=== PATIENT | male | born 1950 | race Caucasian/White ===

== ENCOUNTER → 2018-10-01 | Outpatient (CLI) | payer MEDICARE, OTHER, SELFPAY ==
--- NOTE | 2018-10-01 09:37 | RAD_ITS ---
STUDY: X-RAY - ABDOMEN/PELVIS REASON FOR EXAM: Male, 67 years old. Renal stone assessment TECHNIQUE: Single view COMPARISON: None. FINDINGS: Normal visualized lung bases. At least 2 foci of probable renal calculi in the right kidney, and the larger focus measures 7.4 mm. At least 2 foci of probable renal calculi on the left side in the left kidney, with the larger focus measures 8.1 mm. There is an unremarkable bowel gas pattern. There is no demonstrated free abdominal air. The visualized liver, spleen and kidneys are grossly normal in size and morphology. There are calcified phleboliths in the pelvis. There are diffuse degenerative changes of the visualized lumbar spine. RAD/Abdomen Single View IMPRESSION: Bilateral scattered renal calculi, measuring up to 7.4 mm on the right and 8.1 mm on the left. Electronically Signed: Keith Tierney MD at 15:35 EDT Tel [phone], Service support ,
[2018-10-01 10:58] LABS: Anion Gap 7 (5-15); BUN 21 mg/dL (7-18); BUN/Creat Ratio 19.8 RATIO (10-20); Calcium,Total 9.4 mg/dL (8.5-10.1); Chloride 108 mmol/L (98-107); Creatinine, Serum 1.06 mg/dL (0.70-1.30); EST Glomerular Filtration Rate 74 mL/min (>60); Est Glom Filt Rate - Afr Amer 89 mL/min (>60); Glucose 91 mg/dL (74-106); Phosphorus 2.8 mg/dL (2.5-4.9); Potassium 3.9 mmol/L (3.5-5.1); Sodium Level 139 mmol/L (136-145)
== END | disposition home or self-care (01) ==
LOC: LAB 09:23
PROVIDERS: Family Provider Family Medicine; PCP Family Medicine; Referring Provider Urology; Visit Provider Urology
DX: N40.0 Benign prostatic hyperplasia without lower urinary tract symptoms (principal)
CPT/HCPCS: 36415; 74018; 80048; 83735; 83970; 84100

== ENCOUNTER → 2018-11-05 | Outpatient (CLI) | payer MEDICARE, OTHER, SELFPAY ==
[2018-11-05 08:18] LABS: Anion Gap 5 (5-15); BUN 18 mg/dL (7-18); BUN/Creat Ratio 17.6 RATIO (10-20); Calcium,Total 9.2 mg/dL (8.5-10.1); Chloride 107 mmol/L (98-107); Creatinine, Serum 1.02 mg/dL (0.70-1.30); EST Glomerular Filtration Rate 77 mL/min (>60); Est Glom Filt Rate - Afr Amer 93 mL/min (>60); Glucose 97 mg/dL (74-106); Phosphorus 2.6 mg/dL (2.5-4.9); Sodium Level 140 mmol/L (136-145); Thyroid Stim Hormone (TSH) 3.43 uIU/mL (0.358-3.74)
[2018-11-05 08:29] LABS: PTHIN 65.3 pg/mL (18.4-80.1)
== END | disposition home or self-care (01) ==
LOC: LAB.FUTURE 05:58 → LAB 06:01
PROVIDERS: Family Provider Family Medicine; PCP Family Medicine; Referring Provider Urology; Visit Provider Urology
DX: R82.994 Hypercalciuria (principal); Z79.899 Other long term (current) drug therapy
CPT/HCPCS: 36415; 80048; 83735; 83970; 84100; 84443

== ENCOUNTER → 2018-12-05 | Outpatient (CLI) | payer MEDICARE, OTHER, SELFPAY ==
--- NOTE | 2018-12-05 12:47 | RAD_ITS ---
STUDY: X-RAY - ABDOMEN/PELVIS REASON FOR EXAM: Male, 68 years old. Kidney stones. TECHNIQUE: Single AP view of the abdomen / pelvis. COMPARISON: 10/01/2018. FINDINGS: Normal visualized lung bases. At least 2 foci of probable renal calculi in the right kidney, and the larger focus measures 7.4 mm, stable. At least 2 foci of probable renal calculi on the left side in the left kidney, with the larger focus measures 8.1 mm, stable. There is an unremarkable bowel gas pattern. There is no demonstrated free abdominal air. The visualized liver, spleen and kidneys are grossly normal in size and morphology. Normal soft tissue structures. Normal visualized osseous structures. RAD/Abdomen Single View IMPRESSION: Stable bilateral renal stones since September. Electronically Signed: Tristan Javed MD at 20:39 EDT , Service support ,
== END | disposition home or self-care (01) ==
LOC: RAD 12:45
PROVIDERS: Family Provider Family Medicine; PCP Family Medicine; Referring Provider Urology; Visit Provider Urology
DX: N20.0 Calculus of kidney (principal)
CPT/HCPCS: 74018

== ENCOUNTER 2018-12-20 11:38 | Day surgery (SDC) | payer MEDICARE, OTHER, SELFPAY ==
--- NOTE | 2018-12-20 12:04 | RAD_ITS ---
STUDY: X-RAY - ABDOMEN/PELVIS REASON FOR EXAM: Male, 68 years old. History of kidney stones. For ESWL. TECHNIQUE: KUB. COMPARISON: None. FINDINGS: Left upper pole renal calcification measures 3 mm. Left lower pole renal calcification measures 7 mm. 5 mm lower pole right renal calcification. Soft tissue density projected over the lower pole the right kidney, possible renal cyst. Mild degenerative changes of the thoracic spine. Soft tissues and bony structures are otherwise unremarkable. RAD/Abdomen Single View IMPRESSION: 1. Bilateral renal calculi. 2. Soft tissue density in the right lower quadrant, possible right renal mass or cyst. Consider ultrasound for further evaluation. Electronically Signed: Jessica Ibarra MD at 19:50 EST Tel , Service support ,
[2018-12-20 12:46] VITALS: BP 119/78; PULSE 74; RESP 14; TEMP 36.3; O2SAT 96; BMI 33.5
[2018-12-20] MEDS: Lactated Ringers 1,000 ML 100 ML IV (13:06)
[2018-12-20] MEDS: Cefazolin 2 GM in 0.9% Normal Saline 100 ML IV (14:53)
--- NOTE | 2018-12-20 15:50 | DCINST_ITS ---
- Discharge Diagnoses Current Active Problems: right kidney stone Reason(s) for Visit for Discharge Instructions: right eswl You will use the following diet at home:: Regular Your food should be the consistency of: Regular Discharge Activity: No Restrictions Allergies/Adverse Reactions: Allergies No Known Allergies Allergy (Verified 12/13/18 14:57) Medications to take at Discharge Allopurinol [Zyloprim] 100 mg PO DAILYCM 12/13/18 Amlodipine [Norvasc] 5 mg PO DAILY 12/13/18 Aspirin [Aspir 81] 81 mg PO DAILY 12/13/18 Losartan Potassium [Cozaar] 100 mg PO DAILY 12/13/18 Rosuvastatin Calcium [Crestor] 5 mg PO QHS 12/13/18 Hydrocodone/Acetaminophen [[place] 5-325 Tablet] 1 ea PO Q4H PRN PRN 5 Days #14 tab 12/20/18 The following prescriptions were given: Hydrocodone/Acetaminophen [[place] 5-325 Tablet] 1 ea PO Q4H PRN PRN 5 Days #14 tab PRN Reason: Pain Score 1-10/10 Prescription Printed Primary Care Physician: Altagracia Tracey MD [Primary Care Provider] - Test Results: Test results from this visit will be discussed in further detail at your follow- up appointment, if applicable. Please Follow Up With: Emile Juárez MD When: 2 weeks with xray
--- NOTE | 2018-12-20 15:53 | OP.PCM_ITS ---
Report of Operation Date of Procedure: 12/20/18 Pre-Operative Diagnosis: Right renal calculi Post-Operative Diagnosis: The same Surgery/Procedure Performed:: Cystoscopy right retrograde pyelogram right ESWL Description of Surgical Findings:: 68-year-old male has been having intermittent flank pain in the right side on KUB he is got to fragments that appear to be stones one in the lower pole one in the midpole of the right kidney we have elected to proceed with treatment of the stones to see if the pain will resolve. He understands it is possible the stones may not break with shockwave lithotripsy. Possible he may need more than one procedure. Patient was taken back to the operating room at the smooth induction of general anesthesia he was placed supine on the table we used fluoroscopy to identify the stones in the right kidney appeared to be a stone in the lower pole the right kidney and the one in the midpole we started first treating the stone and what appeared to be a lower pole the right kidney but it did not break remove at all so after a while we decided to perform a retrograde pyelogram we stopped the treatments patient was prepped and draped in usual sterile fashion went to the bladder with a 19 Tamazight rigid ureteroscope the entire length urethra is normal the prostate was normal inside the bladder cannulated the right ureter orifice to perform a retrograde pyelogram and a retrograde pyelogram looks at the lower stone was more of a calcification in the kidney and outside the collecting system but there was a stone in the midpole in the kidney in the midpole upper part of the kidney so we then reposition the lithotripter on the stone and contributing to treatment the stone broke up really well and appeared to be successful fragmentation looks like the lower pole calculi is either and within a pocket or within the diverticular pocket and may be outside the collecting system therefore was not treated. We will see him back in a few weeks with an x-ray and will discuss with the want to treat the stones on the left kidney. Type of Anesthesia:: General - Admit VTE Documentation VTE Present on Admission: No VTE Mechan Device Prophylaxis: SCD's
[2018-12-20 15:59] VITALS: BP 118/80; BP 119/78; PULSE 80; RESP 16; TEMP 36.4; O2SAT 93
[2018-12-20 16:15] VITALS: BP 112/75; BP 119/78; PULSE 70; RESP 16; O2SAT 95
[2018-12-20 16:30] VITALS: BP 118/75; BP 119/78; PULSE 70; RESP 16; TEMP 36; O2SAT 95
[2018-12-20 17:14] VITALS: BP 118/86; BP 119/78; PULSE 64; RESP 16; TEMP 36.1; O2SAT 95
== END 2018-12-20 17:16 | disposition home or self-care (01) ==
LOC: SDC 11:49 → AC 11:53
PROVIDERS: Family Provider Family Medicine; PCP Family Medicine; Referring Provider Urology; Visit Provider Urology
PROC: (CPT 50590; principal; 2018-12-20 13:35)
DX: N20.0 Calculus of kidney (principal); I10 Essential (primary) hypertension; E78.00 Pure hypercholesterolemia, unspecified; B19.10 Unspecified viral hepatitis B without hepatic coma; Z87.442 Personal history of urinary calculi; Z79.82 Long term (current) use of aspirin; Z79.899 Other long term (current) drug therapy
CPT/HCPCS: 50590; 52005; 74018; J7120; J2405

== ENCOUNTER → 2018-12-30 | Outpatient (CLI) | payer MEDICARE, OTHER, SELFPAY ==
[2018-12-20 12:46] VITALS: BMI 33.5
--- NOTE | 2018-12-30 16:02 | RAD_ITS ---
STUDY: X-RAY - ABDOMEN/PELVIS REASON FOR EXAM: Male, 68 years old. Follow-up right-sided kidney stone TECHNIQUE: Two AP supine views of the abdomen and pelvis. COMPARISON: Previous study of 12/20/2018 FINDINGS: Normal visualized lung bases. There is an unremarkable bowel gas pattern. There is no demonstrated free abdominal air. There is an 8 mm calcification projecting over the lower pole of the left kidney. There is a 6 mm calcification projecting over the midpole of the right kidney. Normal soft tissue structures. Normal visualized osseous structures. RAD/Abdomen Single View IMPRESSION: Calcifications projecting over the left and right kidneys, stable in the interval. A 3 mm calcification projecting over the upper pole of the left kidney on the previous study is not identified, possibly being obscured by overlying bowel. Electronically Signed: Aris Banda MD at 19:54 EST , Service support ,
== END | disposition home or self-care (01) ==
LOC: RAD 15:56
PROVIDERS: Family Provider Family Medicine; PCP Family Medicine; Referring Provider Urology; Visit Provider Urology
DX: N20.0 Calculus of kidney (principal)
CPT/HCPCS: 74018

== ENCOUNTER → 2020-01-12 08:14 | Outpatient (CLI) | payer MEDICARE, OTHER, SELFPAY ==
--- NOTE | 2020-01-12 08:22 | RAD_ITS ---
STUDY: X-RAY - ABDOMEN/PELVIS REASON FOR EXAM: Male, 69 years old. History of kidney stones. Yearly checkup. No current pain. TECHNIQUE: Two AP supine views of the abdomen and pelvis. COMPARISON: 2018. FINDINGS: Normal visualized lung bases. There is an unremarkable bowel gas pattern. There is no demonstrated free abdominal air. The visualized liver, spleen and kidneys are grossly normal in size and morphology. There is a stable calcification overlying the left mid kidney. There is a stable calcification overlying the lower pole of the left kidney. No new calcifications are seen. There are no ureteral calcifications. Stable phleboliths are seen in the right pelvis. There are no osseous changes. RAD/Abdomen Single View IMPRESSION: Stable bilateral renal calculi. Electronically Signed: Byod Art DO at 23:24 EST Tel [phone], Service support ,
== END ==
PROVIDERS: PCP Family Medicine; Referring Provider Urology; Visit Provider Urology
DX: N20.0 Calculus of kidney (principal)
CPT/HCPCS: 74018

== ENCOUNTER → 2020-10-26 09:01 | Outpatient (CLI) | payer MEDICARE, OTHER, SELFPAY ==
--- NOTE | 2020-10-26 09:10 | RAD_ITS ---
STUDY: X-RAY - ABDOMEN/PELVIS REASON FOR EXAM: Male, 70 years old. Nephrolithiasis TECHNIQUE: Single AP view of the abdomen / pelvis. COMPARISON: None. FINDINGS: Normal visualized lung bases. Small bowel and colonic gas patterns are normal. No mucosal thickening.. No free intraperitoneal air. The visualized liver, spleen and kidneys are grossly normal in size and morphology. 7 mm calculus overlying the right lower renal pole. 3 mm calculus overlying the right upper renal pole. 6 mm calculus overlying the left. Multiple additional calcifications overlying the pelvis which likely represent phleboliths. Normal soft tissue structures. There are diffuse degenerative changes of the visualized lumbar spine. RAD/Abdomen Single View IMPRESSION: 1. Bilateral nephrolithiasis 2. Normal bowel gas pattern. Electronically Signed: Jeyson Deras MD at 3:50 EDT Tel , Service support ,
--- NOTE | 2020-10-26 12:23 | EKG12_ITS ---
Test Reason : PRE OP Blood Pressure : / mmHG Vent. Rate : 095 BPM Atrial Rate : 095 BPM P-R Int : 206 ms QRS Dur : 156 ms QT Int : 378 ms P-R-T Axes : 022 -49 024 degrees QTc Int : 475 ms Normal sinus rhythm Right bundle branch block Left anterior fascicular block Bifascicular block Abnormal ECG Confirmed by AGATA MELGOZA, LOWELL ([id number]), editorial clerk HERNANDO MAYS ([id number]) on 10/27/2020 10:42:33 AM Referred By: MICHAEL Confirmed By:LOWELL PARMAR MD
== END ==
PROVIDERS: PCP Family Medicine; Visit Provider Urology
DX: N20.0 Calculus of kidney (principal)
CPT/HCPCS: 74018; 93005

== ENCOUNTER → 2020-10-26 12:20 | Outpatient (CLI) | payer MEDICARE, OTHER, SELFPAY | PROVIDERS: PCP Family Medicine; Visit Provider Urology | DX: Z01.810 Encounter for preprocedural cardiovascular examination (principal); I10 Essential (primary) hypertension ==

== ENCOUNTER → 2020-10-29 16:19 | Outpatient (CLI) | payer MEDICARE, OTHER, SELFPAY | PROVIDERS: PCP Family Medicine; Referring Provider Urology; Visit Provider Urology | DX: N39.0 Urinary tract infection, site not specified (principal) | CPT/HCPCS: 87077; 87086; 87088; 87186 ==

== ENCOUNTER 2020-10-31 10:04 | Emergency (ER) | payer MEDICARE, OTHER, SELFPAY ==
[2020-10-31 10:05] VITALS: BP 151/106; PULSE 78; RESP 16; TEMP 36.2; O2SAT 94; BMI 34.5
--- NOTE | 2020-10-31 10:42 | RAD_ITS ---
STUDY: X-RAY CHEST REASON FOR EXAM: Male, 70 years old. Cough. TECHNIQUE: Single AP portable view of the chest. COMPARISON: None. FINDINGS: Atelectatic changes in both lung bases and left midlung zone. There is no demonstrated pleural abnormality. Normal size heart. Normal mediastinum and dilip. Normal visualized pulmonary arteries. There is atherosclerotic tortuosity of the aortic arch and descending thoracic aorta. No demonstrated acute osseous changes. There is no demonstrated abnormality of the visualized soft tissue structures of the upper abdomen. RAD/Chest 1 View (Portable) IMPRESSION: Linear subsegmental atelectatic changes. Electronically Signed: Greyson Szymanski MD at 11:53 EDT Tel , Service support ,
--- NOTE | 2020-10-31 10:47 | EX.ED.DYSGE1 ---
HPI History of Present Illness Chief Complaint: Complaint Informant: patient and spouse/S.O. Onset/Context/Timing Onset: Days Context: Gradual Onset Timing: Continuous Current Severity: Mild Maximum Severity: Mild Narrative Narrative: 70-year-old male history of hypertension, high cholesterol and gout. Recently diagnosed with an 8 mm kidney stone for which a stent was placed and a UTI for which she is on Cipro which was started on . Is really had no nausea or vomiting no diarrhea. No significant fever. He is also had a nonproductive cough which she got a negative Covid test done at a urgent care last Sunday. Just as he did not feel much better. His urologist sent him in for further evaluation because he has an upcoming procedure for the kidney stone. Prior similar symptoms: No Recent Illness/Hospitalization: No [facility] Medical History (Updated 10/31/20 @ 12:[address] Nathan Rincon MD) Gout HLD (hyperlipidemia) Hypertension Home Medications allopurinol 100 mg PO DAILYCM 12/13/18 [History Last Taken Unknown] amlodipine 5 mg PO DAILY 12/13/18 [History Last Taken 12/20/18 07:00 5 MG] aspirin 81 mg PO DAILY 12/13/18 [History Last Taken 12/12/18] losartan 100 mg PO DAILY 12/13/18 [History Last Taken 12/20/18 07:00 100 MG] rosuvastatin 5 mg PO QHS 12/13/18 [History Last Taken Unknown] Allergy/AdvReac Type Severity Reaction Status Date / Time No Known Allergies Allergy Verified 12/13/18 14:57 Social History Smoking Status: Never smoker ROS ROS ED ROS Narrative Cough. Cloudy urine. Body aches. Review of Systems ROS Unobtainable: Denies due to encephalopathy Constitutional Constitutional ED: Denies chills or fever(s) Eyes Eyes: Denies change in vision ENT ENT ED: Denies ear pain or sore throat Cardiovascular Cardiovascular: Denies chest pain Respiratory/Chest Respiratory/Chest: Reports cough; Denies dyspnea Gastrointestinal Gastrointestinal: Denies abdominal pain, diarrhea, nausea or vomiting Genitourinary Genitourinary ED: Reports dysuria Musculoskeletal Musculoskeletal: Reports arthralgias and myalgias Integumentary Denies abscess or rash Neurologic Neurologic: Denies headache(s) Psychiatric Psychiatric: Denies depression Endocrine Endocrinology: Denies polyuria Allergic/Immunologic Allergic/Immunologic ED: Denies urticaria EXAM Physical Exam Narrative Exam Narrative: Well-appearing 70-year-old male. Vital signs stable afebrile. Pulse ox 94% on room air no signs of hypoxia. Patient does not look septic nor dehydrated nor toxic. He is in no distress. at bedside. HEENT exam unremarkable. Neck nontender no lymphadenopathy. Lungs clear to auscultation bilaterally. Heart regular rhythm rate about 75 no murmur. Abdomen soft nondistended normal bowel sounds no peritoneal signs. Moving all 4 extremities. No edema. Back nontender no CVA tenderness. Neurologically is awake and alert with no focal motor deficits. Const Vital Signs: 10/31/20 10:05 Temperature 97.2 F L Temperature Source Temporal Pulse Rate 78 Respiratory Rate 16 Blood Pressure 151/106 H Blood Pressure Mean 121 Pulse Ox 94 Oxygen Delivery Method Room Air Positive well nourished and well developed; Negative for cachectic, contractures or unkempt General Appearance ED: well developed and NAD; Negative for unkempt, cachectic or contractures Nutritional Appearance: Negative for cachectic HEENT Reports moist mucous membranes Negative for trauma or tenderness Eyes PERRL and EOMs intact bilaterally Neck no lymphadenopathy, supple and no JVD General: Negative for tenderness Chest Wall inspection of chest normal and palpation of chest normal Resp normal respiratory effort and clear to auscultation bilaterally Effort and Inspection: Negative for pain with movement Auscultation: Negative for rales, rhonchi or wheezes Cardio regular rate, regular rhythm, S1 normal heart sound, S2 normal heart sound and no murmurs GI normal to inspection, nondistended, normoactive bowel sounds, non-distended and no masses; Negative for non-tender Inspection: Negative for abdominal distention Auscultation: normoactive bowel sounds; Negative for hyperactive bowel sounds or hypoactive bowel sounds Palpation: soft and tender; Negative for guarding or rebound tenderness present Back/Spine no CVA tenderness General Back: Negative for CVA tenderness Cervical Spine: Negative for cervical spine tenderness Thoracic Spine / Upper Back: Negative for thoracic spinal tenderness Extremity normal to inspection General Extremety ED: Negative for edema or tenderness General Extremity: Negative for edema Neuro oriented x3 and CN's II-XII intact bilaterally Sensorium / Orientation: alert; Negative for orientation impaired, lethargic or stuporous Motor Exam: strength 5/5 throughout Psych mental status grossly normal Appearance: Negative for unkempt Attitude: No agitated Mood & Affect: Negative for depressed, anxious or tearful Skin no rashes or lesions noted and no wounds MDM MDM MDM Narrative Medical decision making narrative: 70-year-old male no acute distress cough and body aches. Covid test and labs are being obtained. He has a UTI to currently treated in a known 8 mm kidney stone with a stent. Repeat exam patient is doing well. He and I and his went over all his test results. Other than dehydration his tests look good. Also his urine cultures have returned the bacteria that is growing out is sensitive to his Cipro and his urinalysis is looking good. They are comfortable with him being discharged home with outpatient follow-up I will speak to Dr. Jose Juárez of urology prior to disposition. Lab Data Attestation: I reviewed the patient's lab results. Lab results narrative: CBC shows a white count 8. Hemoglobin 15. Electrolytes are unremarkable gap of 5 BUN of 45 creatinine is elevated 1.6 consistent with dehydration. Liver enzymes are unremarkable. UA shows 5-10 reds 0-5 whites rare bacteria Labs: Laboratory Results - last 24 hr 10/31/20 10/31/20 10/31/20 11:00 11:00 11:45 WBC 8.4 RBC 5.11 Hgb 15.0 Hct 46.1 MCV 90.2 MCH 29.4 MCHC 32.5 RDW Std Deviation 44.2 H RDW Coeff of Ana 13.2 Plt Count 132 L MPV 9.7 Sodium 138 Potassium 4.1 Chloride 107 Carbon Dioxide 26.0 Anion Gap 5 BUN 45 H Creatinine 1.60 H Estim Creat Clear Calc 47.15 Est GFR (MDRD) Af Amer 55 L Est GFR (MDRD) Non-Af 46 L BUN/Creatinine Ratio 28.1 H Glucose 121 H Calcium 9.3 Total Bilirubin 0.90 AST 55 H ALT 61 Alkaline Phosphatase 100 Total Protein 6.9 Albumin 2.3 L Globulin 4.6 H Albumin/Globulin Ratio 0.5 L Lipase 68 L Urine Color Yellow Urine Clarity Sl. Cloudy Urine pH 6.0 Ur Specific [place] 1.010 Urine Protein 30 H Urine Glucose (UA) Normal Urine Ketones Negative Urine Occult Blood 250 H Urine Nitrite Negative Urine Bilirubin Negative Urine Urobilinogen Normal Ur Leukocyte Esterase 100 H Urine RBC 5-10 SEEN Urine WBC 0-5 SEEN Ur Squamous Epith Cells 0 SEEN Urine Bacteria RARE Urine Mucus 0 SEEN Radiography Chest X-Ray - ED: 1 View, Read by ED Physician, Heart, Lungs, Mediastinum, Bony Structures, No Acute Disease and Chronic Changes Diagnostic Testing: Radiology Impression Chest X-Ray 10/31/20 10:42 IMPRESSION: Linear subsegmental atelectatic changes. Electronically Signed: Greyson Szymanski MD at 11:53 EDT Tel , Service support , Portable single view chest x-ray shows atelectasis but no acute signs of pneumonia or infiltrates. Interpreted both by myself and the radiologist. Discharge Plan Triage Chief Complaint: Complaint ED Provider: Nathan Rincon Dx/Rx/DC Orders Clinical Impression: Acute dehydration Instructions: Dehydration, ED Bladder Infection, Male (Adult) Prescriptions: No Action amlodipine 5 MG tablet 5 mg PO DAILY RF: 0 allopurinol 100 MG tablet 100 mg PO DAILYCM RF: 0 losartan 100 MG tablet 100 mg PO DAILY RF: 0 rosuvastatin 5 MG tablet 5 mg PO QHS RF: 0 aspirin 81 MG tablet,delayed release (DR/EC) 81 mg PO DAILY RF: 0 Primary Care Provider: Altagracia Tracey Referrals: Emile Juárez MD [STAFF PHYSICIAN] - As soon as possible Altagracia Tracey MD [Primary Care Provider] - As Needed Activity Restrictions/Additional Instructions: Your lab today look good as is your chest x-ray and your Covid test was negative. You are a little dehydrated. Plenty of fluids and rest. Follow-up with your urologist. If you continue to have a cough get rechecked for Covid in a week. Disposition Disposition: Home, Self Care
[2020-10-31] MEDS: 0.9% Normal Saline 1,000 ML 1000 ML IV (10:59)
[2020-10-31 11:07] LABS: Hematocrit 46.1 % (40-54); Mean Corp Hgb Conc 32.5 g/dL (32-36); Mean Corpuscular Hgb 29.4 pg (27.0-32.0); Mean Corpuscular Volume 90.2 fL (80-94); Mean Platelet Vol. 9.7 fl (6.2-12.0); Platelet Count 132 K/mm3 (150-450); RBC Distribution Width CV 13.2 % (11.6-14.6); RBC Distribution Width SD 44.2 fl (35.1-43.9); Red Blood Count 5.11 M/mm3 (4.6-6.2); White Blood Count 8.4 K/mm3 (4.4-11.0)
[2020-10-31 11:21] LABS: ALB/GLOB Ratio 0.5 RATIO (0.9-2.4); AST(SGOT) 55 U/L (15-37); Alanine Aminotransfer ALT/SGPT 61 U/L (16-61); Albumin, Serum 2.3 g/dL (3.2-5.0); Alkaline Phosphatase 100 U/L (45-117); Anion Gap 5 (5-15); BUN 45 mg/dL (7-18); BUN/Creat Ratio 28.1 RATIO (10-20); Calcium,Total 9.3 mg/dL (8.5-10.1); Chloride 107 mmol/L (98-107); EST Glomerular Filtration Rate 46 mL/min (>60); Est Glom Filt Rate - Afr Amer 55 mL/min (>60); Estimated Creatinine Clearance 47.15 ml/min; Globulin 4.6 g/dL (2.2-4.2); Glucose 121 mg/dL (74-106); Lipase 68 U/L (73-393); Potassium 4.1 mmol/L (3.5-5.1); Protein, Total 6.9 g/dL (6.4-8.2); Sodium Level 138 mmol/L (136-145)
[2020-10-31 11:53] LABS: Mucous, Urine 0 SEEN /hpf (<or=2+); Squamous Epithelial Cells - UA 0 SEEN /hpf (0-5)
[2020-10-31 11:55] LABS: Color, Urine Yellow (Yellow); Glucose, Dipstick Normal (Normal); Ketone-Dipstick Negative (Negative); Leukocyte Esterase-Dipstick 100 /ul (Negative); Nitrite-Dipstick Negative (Negative); Occult Blood-Urine 250 /ul (Negative); Protein-Dipstick 30 mg/dl (Negative); Urine Bilirubin Dipstick Negative (Negative); Urine Clarity Sl. Cloudy (Clear); Urine Urobilinogen Normal (Normal)
[2020-10-31 12:02] LABS: Bacteria RARE /hpf (None Seen); Red Blood Cells-Urine 5-10 SEEN /hpf (0-5); White Blood Cells 0-5 SEEN /hpf (0-5)
[2020-10-31 13:29] VITALS: BP 132/88; PULSE 63; RESP 16; O2SAT 97
== END 2020-10-31 13:31 | disposition home or self-care (01) ==
PROVIDERS: Emergency Provider Emergency Medicine; PCP Family Medicine
DX: E86.0 Dehydration (principal); E78.00 Pure hypercholesterolemia, unspecified; I10 Essential (primary) hypertension; Z79.82 Long term (current) use of aspirin; Z79.899 Other long term (current) drug therapy
CPT/HCPCS: 71045; 80053; 81001; 83690; 85027; 87426; 96360; 96361; 99283; J7030; A4216

== ENCOUNTER → 2020-11-12 15:10 | Outpatient (CLI) | payer MEDICARE, OTHER, SELFPAY ==
--- NOTE | 2020-11-12 10:20 | CALC_PTH ---
PATIENT: TRINIDAD MORALES LOC: [facility] U#:[id number] AGE/SX: 74/M ROOM: RE11/12/[address]: Dr. Emile Juárez MD : 1950 BED: DIS: SPEC #: [id number] RECD: 11/12/20 14:57 STATUS: DARLENE ROSIE #: [id number] DARCY: 11/12/20 10:[address]: Emile Juárez DEPT: SURGICAL PATHOLOGY RECD BY: Nicolle Norman ENTERED: 11/15/20 09:02 SP TYPE: Calculi OTHR DR: Dr. Altagracia Tracey MD [facility] Tissues: CALCULI Procedures: Surgery Specimen Level I HEADER OPERATION: Left ureteroscopy, laser stone, left ureteral stent PRE-OP DIAGNOSIS: Calculus of left ureter TISSUE SUBMITTED: Laser stone fragments GROSS DIAGNOSIS Calculus of left ureter, removal: Fragments of unremarkable calculus (gross diagnosis only). AM:wilfredo 11/16/2020 COMMENT If chemical analysis is requested on this specimen, please notify the laboratory. GROSS DESCRIPTION Received without fixative labeled with the patient's name and designated left ureteral calculi. The specimen consists of multiple fragments of black stone measuring 0.8 x 0.3 x 0.2 cm. The entire specimen is saved if stone analysis is requested. / AM:wilfredo 11/15/20 CPT: 02236
== END ==
PROVIDERS: PCP Family Medicine; Referring Provider Urology; Visit Provider Urology
DX: N20.1 Calculus of ureter (principal)
CPT/HCPCS: 88300

== ENCOUNTER → 2021-12-29 | Outpatient (CLI) | payer MEDICARE, OTHER, SELFPAY ==
--- NOTE | 2021-12-29 09:07 | RAD_ITS ---
STUDY: X-RAY - ABDOMEN/PELVIS REASON FOR EXAM: Male, 71 years old. Flank pain TECHNIQUE: 3 COMPARISON: 10/26/2020 FINDINGS: Normal visualized lung bases. There is an unremarkable bowel gas pattern. There is no demonstrated free abdominal air. The visualized liver, spleen and kidneys are grossly normal in size and morphology. There is a 4 mm calcification projecting over the right kidney. Normal soft tissue structures. There are diffuse degenerative changes of the visualized lumbar spine. RAD/Abdomen Single View IMPRESSION: No acute findings Likely right nephrolithiasis Electronically Signed: Bernabe Fuentes MD at 10:15 EST ,
== END | disposition home or self-care (01) ==
LOC: RAD 09:06
PROVIDERS: PCP Family Medicine; Visit Provider Urology
DX: R10.9 Unspecified abdominal pain (principal)
CPT/HCPCS: 74018